=== PATIENT | female | born 1955 | race African-American/Black ===

== ENCOUNTER 2022-10-05 09:29 | Inpatient (IN) ==
[2022-10-05] MEDS ORDERED: SODIUM CHLORIDE 0.9% 500 ML IV STA (10:01)
[2022-10-05 10:21] LABS: Basophils % 0.2 % (0.0-0.8); Eosinophils % 0.1 % (0.00-10.9); Hematocrit 35.1 VOL% (35.7-47.0); Hemoglobin 10.7 GM/DL (12.0-16.0); Immature Granulocytes % 0.6 %; Immature Granulocytes Absolute 0.06 #; Lymphocytes % 9.5 % (21.3-54.2); Mean Corpuscular HGB Conc 30.5 GM/DL (32-36); Mean Corpuscular Volume 88.2 FL (87-102); Mean Platelet Volume 11.6 FL (9.6-12.0); Monocytes # 0.6 10*3/uL (0.11-0.8); Monocytes % 6.1 % (1.7-12.7); Neutrophils % 83.5 % (38.7-73.9); Platelet Count 183 T/CUMM (130-400); Red Blood Count 3.98 MC/CUMM (3.8-5.5); Red Cell Distribution Width 21.4 % (9.3-17.3); White Blood Count 10.1 T/CUMM (4-12)
[2022-10-05 10:31] LABS: INR 1.1; PT Patient Result 11.9 SECS (10.1-12.1)
[2022-10-05 10:40] LABS: Albumin 3.4 G/DL (3.4-5.0); Bilirubin,Total 1.1 MG/DL (0.20-1.00); Potassium 3.5 MMOL/L (3.5-5.1); Total Protein 6.9 G/DL (6.4-8.2)
[2022-10-05 12:08] LABS: Hyaline Casts,Urine 10 /LPF (0-3); Mucus,Urine Occasional /LPF (Occasional); RBC,Urine 78 /HPF (0-4); Squamous Epithelial Cell,Urine Few /HPF (0-10)
[2022-10-05 12:09] LABS: Bilirubin,Urine Small mg/dL (Negative); Blood, Urine Moderate mg/dL (Negative); Glucose,Urine (UA) Negative (Negative); Ketones,Urine 15 mg/dL (Negative); Nitrite,Urine Positive (Negative); Protein,Urine 30 mg/dL (Negative); Urine Appearance Slightly Cloudy (Clear); Urine Color Yellow (Yellow); Urine Specific Gravity 1.025 (1.001-1.035); Urine pH 6.5 (4.5-8.0)
[2022-10-05] MEDS ORDERED: cefTRIAXone 1,000 MG in SODIUM CHLORIDE 0.9% 100 ML IV STA (12:28)
[2022-10-05] MEDS ORDERED: hydrALAZINE 20 MG/1 ML VIAL IV STA (12:47)
[2022-10-05] MEDS ORDERED: ONDANSETRON 4 MG/2 ML VIAL IV PRN (13:06)
[2022-10-05] MEDS ORDERED: predniSONE 5 MG TABLET PO PRN (13:10)
[2022-10-05] MEDS ORDERED: cefTRIAXone 1,000 MG in SODIUM CHLORIDE 0.9% 100 ML IV SCH (13:30)
[2022-10-05] MEDS: HEPARIN 5,000 UNIT/1 ML VIAL SUBCUT SCH (14:24)
[2022-10-05] MEDS: DEXTROSE 5% NACL 0.9% 1,000 ML IV SCH ×2 (14:24→23:13)
[2022-10-05] MEDS ORDERED: CYANOCOBALAMIN 1000 MCG/1 ML VIAL IM SCH (16:00)
[2022-10-05] MEDS ORDERED: levETIRAcetam 500 MG/5 ML VIAL IV SCH (21:00)
[2022-10-05] MEDS ORDERED: PANTOPRAZOLE 40 MG VIAL IV SCH (21:00)
[2022-10-05] MEDS: BIMATOPROST 0.01% OPH SOLN 2.5 ML BOTTLE BOTH EYES SCH (21:42)
[2022-10-05] MEDS: DOCUSATE SODIUM 100 MG CAPSULE PO SCH (21:42)
[2022-10-05] MEDS: levETIRAcetam 500 MG TABLET PO SCH (23:25)
[2022-10-06] MEDS: HEPARIN 5,000 UNIT/1 ML VIAL SUBCUT SCH ×2 (02:43→13:07)
[2022-10-06] MEDS: DEXTROSE 5% NACL 0.9% 1,000 ML IV SCH ×2 (04:36→18:38)
[2022-10-06 05:24] LABS: Basophils % 0.1 % (0.0-0.8); Eosinophils % 0.1 % (0.00-10.9); Hematocrit 29.1 VOL% (35.7-47.0); Hemoglobin 9.1 GM/DL (12.0-16.0); Immature Granulocytes % 0.5 %; Immature Granulocytes Absolute 0.04 #; Lymphocytes # 1.1 10*3/uL (1.4-4.0); Lymphocytes % 13.1 % (21.3-54.2); Mean Corpuscular HGB Conc 31.3 GM/DL (32-36); Mean Corpuscular Volume 86.1 FL (87-102); Monocytes # 0.7 10*3/uL (0.11-0.8); Neutrophils % 78.2 % (38.7-73.9); Platelet Count 147 T/CUMM (130-400); Red Blood Count 3.38 MC/CUMM (3.8-5.5); Red Cell Distribution Width 21.2 % (9.3-17.3); White Blood Count 8.2 T/CUMM (4-12)
[2022-10-06 05:47] LABS: Calcium 8.2 MG/DL (8.5-10.1); Osmolality,Calculated 281.1 MOS/KG (273-304); Thyroid Stimulating Hormone 1.02 uIU/ml (0.358-3.74)
[2022-10-06 05:49] LABS: Potassium 2.2 MMOL/L (3.5-5.1)
[2022-10-06] MEDS: cefTRIAXone 1,000 MG in SODIUM CHLORIDE 0.9% 100 ML IV SCH (09:49)
[2022-10-06] MEDS: POTASSIUM CHLORIDE 10 MEQ TABLET PO SCH (09:50)
[2022-10-06] MEDS: LEFLUNOMIDE 10 MG TABLET PO SCH (09:50)
[2022-10-06] MEDS: POTASSIUM CHLORIDE 20 MEQ TABLET PO PRN (09:50)
[2022-10-06] MEDS: PANTOPRAZOLE 40 MG TABLET PO SCH ×2 (09:51→20:38)
[2022-10-06] MEDS: FOLIC ACID 1 MG TABLET PO SCH (09:51)
[2022-10-06] MEDS: LOSARTAN 50 MG TABLET PO SCH (09:51)
[2022-10-06] MEDS: DOCUSATE SODIUM 100 MG CAPSULE PO SCH ×2 (09:51→20:38)
[2022-10-06] MEDS: levETIRAcetam 500 MG TABLET PO SCH ×2 (09:51→20:38)
[2022-10-06] MEDS: CHOLECALCIFEROL 1,000 UNIT TABLET PO SCH (09:51)
[2022-10-06] MEDS: hydroCHLOROthiazide 25 MG TABLET PO SCH (09:51)
[2022-10-06] MEDS: LINACLOTIDE 145 MCG CAPSULE PO SCH (09:52)
[2022-10-06] MEDS: ASPIRIN EC 81 MG TABLET PO SCH (09:52)
[2022-10-06] MEDS ORDERED: POTASSIUM CHLORIDE INJ 50 MEQ in SODIUM CHLORIDE 0.9% 500 ML IV ONE (13:00)
[2022-10-06] MEDS: BIMATOPROST 0.01% OPH SOLN 2.5 ML BOTTLE BOTH EYES SCH (20:39)
[2022-10-07] MEDS: DEXTROSE 5% NACL 0.9% 1,000 ML IV SCH ×2 (02:28→11:27)
[2022-10-07] MEDS: HEPARIN 5,000 UNIT/1 ML VIAL SUBCUT SCH ×2 (02:28→20:59)
[2022-10-07 06:27] LABS: Calcium 8.1 MG/DL (8.5-10.1); Osmolality,Calculated 281.1 MOS/KG (273-304); Potassium 2.8 MMOL/L (3.5-5.1)
[2022-10-07] MEDS: POTASSIUM CHLORIDE 20 MEQ TABLET PO PRN ×2 (06:32→12:28)
[2022-10-07 07:08] LABS: Basophils % 0.3 % (0.0-0.8); Eosinophils % 0.3 % (0.00-10.9); Hematocrit 31.7 VOL% (35.7-47.0); Hemoglobin 9.7 GM/DL (12.0-16.0); Immature Granulocytes % 0.8 %; Immature Granulocytes Absolute 0.05 #; Lymphocytes # 1.2 10*3/uL (1.4-4.0); Lymphocytes % 18.2 % (21.3-54.2); Mean Corpuscular HGB Conc 30.6 GM/DL (32-36); Mean Corpuscular Volume 87.8 FL (87-102); Monocytes # 0.5 10*3/uL (0.11-0.8); Monocytes % 7.4 % (1.7-12.7); Platelet Count 144 T/CUMM (130-400); Red Blood Count 3.61 MC/CUMM (3.8-5.5); Red Cell Distribution Width 21.8 % (9.3-17.3); White Blood Count 6.3 T/CUMM (4-12)
[2022-10-07] MEDS ORDERED: POTASSIUM CHLORIDE INJ 50 MEQ in SODIUM CHLORIDE 0.9% 500 ML IV ONE (10:00)
[2022-10-07] MEDS: LOSARTAN 50 MG TABLET PO SCH (10:30)
[2022-10-07] MEDS: DOCUSATE SODIUM 100 MG CAPSULE PO SCH ×2 (10:30→20:54)
[2022-10-07] MEDS: FOLIC ACID 1 MG TABLET PO SCH (10:31)
[2022-10-07] MEDS: hydroCHLOROthiazide 25 MG TABLET PO SCH (10:31)
[2022-10-07] MEDS: levETIRAcetam 500 MG TABLET PO SCH ×2 (10:31→20:54)
[2022-10-07] MEDS: CHOLECALCIFEROL 1,000 UNIT TABLET PO SCH (10:31)
[2022-10-07] MEDS: LEFLUNOMIDE 10 MG TABLET PO SCH (10:31)
[2022-10-07] MEDS: PANTOPRAZOLE 40 MG TABLET PO SCH ×2 (10:31→20:54)
[2022-10-07] MEDS: POTASSIUM CHLORIDE 10 MEQ TABLET PO SCH (10:31)
[2022-10-07] MEDS: ASPIRIN EC 81 MG TABLET PO SCH (10:31)
[2022-10-07] MEDS: LINACLOTIDE 145 MCG CAPSULE PO SCH (10:32)
[2022-10-07] MEDS: cefTRIAXone 1,000 MG in SODIUM CHLORIDE 0.9% 100 ML IV SCH (10:32)
[2022-10-07] MEDS ORDERED: hydrALAZINE 20 MG/1 ML VIAL IV PRN (15:42)
[2022-10-07] MEDS ORDERED: DILTIAZEM CD 120 MG CAPSULE PO ONE (15:42)
[2022-10-07] MEDS: CIPROFLOXACIN 500 MG TABLET PO SCH (20:54)
[2022-10-07] MEDS: BIMATOPROST 0.01% OPH SOLN 2.5 ML BOTTLE BOTH EYES SCH (20:59)
[2022-10-07] MEDS ORDERED: LATANOPROST 0.005% OPH SOLN 2.5 ML BOTTLE BOTH EYES SCH (21:00)
[2022-10-08 05:23] LABS: Basophils % 0.3 % (0.0-0.8); Eosinophils % 0.3 % (0.00-10.9); Hematocrit 30.7 VOL% (35.7-47.0); Hemoglobin 9.7 GM/DL (12.0-16.0); Immature Granulocytes % 0.6 %; Immature Granulocytes Absolute 0.04 #; Lymphocytes # 0.9 10*3/uL (1.4-4.0); Lymphocytes % 14.1 % (21.3-54.2); Mean Corpuscular HGB Conc 31.6 GM/DL (32-36); Mean Corpuscular Volume 87.5 FL (87-102); Monocytes # 0.5 10*3/uL (0.11-0.8); Monocytes % 7.4 % (1.7-12.7); Neutrophils % 77.3 % (38.7-73.9); Platelet Count 148 T/CUMM (130-400); Red Blood Count 3.51 MC/CUMM (3.8-5.5); White Blood Count 6.6 T/CUMM (4-12)
[2022-10-08 05:49] LABS: Calcium 8.8 MG/DL (8.5-10.1); Osmolality,Calculated 279.1 MOS/KG (273-304)
[2022-10-08] MEDS ORDERED: MAGNESIUM SULF RIDER 2 GM/50 ML PREMIX IV ONE (07:26)
[2022-10-08] MEDS ORDERED: DILTIAZEM CD 240 MG CAPSULE PO SCH (09:00)
[2022-10-08] MEDS ORDERED: DILTIAZEM CD 120 MG CAPSULE PO SCH (09:00)
[2022-10-08] MEDS: DOCUSATE SODIUM 100 MG CAPSULE PO SCH (09:27)
[2022-10-08] MEDS: LEFLUNOMIDE 10 MG TABLET PO SCH (09:27)
[2022-10-08] MEDS: FOLIC ACID 1 MG TABLET PO SCH (09:28)
[2022-10-08] MEDS: PANTOPRAZOLE 40 MG TABLET PO SCH (09:28)
[2022-10-08] MEDS: POTASSIUM CHLORIDE 20 MEQ TABLET PO PRN (09:28)
[2022-10-08] MEDS: CIPROFLOXACIN 500 MG TABLET PO SCH (09:28)
[2022-10-08] MEDS: CHOLECALCIFEROL 1,000 UNIT TABLET PO SCH (09:28)
[2022-10-08] MEDS: POTASSIUM CHLORIDE 10 MEQ TABLET PO SCH (09:28)
[2022-10-08] MEDS: LOSARTAN 50 MG TABLET PO SCH (09:28)
[2022-10-08] MEDS: ASPIRIN EC 81 MG TABLET PO SCH (09:29)
[2022-10-08] MEDS: HEPARIN 5,000 UNIT/1 ML VIAL SUBCUT SCH (09:34)
[2022-10-08] MEDS: hydroCHLOROthiazide 25 MG TABLET PO SCH (09:35)
[2022-10-08] MEDS: levETIRAcetam 500 MG TABLET PO SCH (09:35)
[2022-10-08] MEDS: LINACLOTIDE 145 MCG CAPSULE PO SCH (09:35)
[2022-10-08 12:23] VITALS: BP 158/85
[2022-10-09] MEDS ORDERED: FERROUS SULFATE 325 MG TABLET PO SCH (09:00)
[2022-10-09] MEDS ORDERED: AUTO INJECTOR SUBCUT SCH (13:10)
[2022-10-09] MEDS ORDERED: ABATACEPT 125 MG/ML SUBCUT SCH (13:10)
== END 2022-10-08 13:32 | disposition home health service (06) | DRG 690 ==
LOC: N.ED 09:29 → SUATTDRO 13:06 → N.EDINP 13:06 → N.2E 15:37
PROVIDERS: ADMIT Internal Medicine; ATTEND Internal Medicine